=== PATIENT | male | born 1950 | race Caucasian/White ===

== ENCOUNTER 2019-12-03 08:02 | Outpatient (CLI) | payer MEDICARE ==
--- NOTE | 2019-12-03 09:22 | CT ---
EXAM: CT Abdomen Pelvis W WO con PROVIDED CLINICAL HISTORY: Gross hematuria. Renal lithiasis. COMPARISON: None FINDINGS: Linear scarring versus atelectasis is present at the right lung base. Lung bases are otherwise clear Innumerable subcentimeter hypodense lesions are seen throughout each lobe of the liver. There are lar hair hypodense lesions within the right and left hepatic lobes with lesion in the medial segment left hepatic lobe measuring 1.8 cm and larger hypodense lesion in the posterior segment right hepatic lobe measuring 1.3 cm which demonstrate fluid attenuation most compatible with cysts. A 1.6 cm hypodense lesion is seen in a subcapsular location at the medial aspect posterior segment right hepat ic lobe which cannot be characterized as a simple cyst based on this exam. Punctate calcification is seen in the body of the spleen. This could potentially be sequela of prior pancreatitis. No lesion is seen within the pancreas. Spleen and bilateral adrenal glands demonstrate a normal CT appearance. A subcentimeter too small to characterize hypodense lesion is seen in the inferior pole right kidney. No enhancing renal mass is seen on this exam. There are 2 closely adjacent approximately 3 mm calculi seen in the inferior pole left kidney with a faint nonobstructing punctate calculus seen in the superior pole right kidney. No ureteral calculus is seen bilaterally, and there is no evidence of hydronephrosis. Delayed imaging was not obtained for further evaluation of the renal collecting structures and ureters. Urinary bladder is partially distended and has a normal CT appearance. A moderate amount retained fecal material seen throughout the colon. Small bowel are normal in calibe r. Vascular calcification is seen in the abdominal aorta. Scattered subcentimeter lucencies are seen within lumbar vertebral bodies as well as in the iliac bon es bilaterally with a lucency extending through the lateral cortex of the right iliac bone (image 47 and 48 of series 3). Findings may represent osteopenia with prominent nutrient vessel foramen in t he right iliac bone, but early metastatic disease or multiple myeloma cannot be entirely excluded given multiplicity of these areas of lucency. IMPRESSION: 1. Scattered lucencies within the osseous structures, involving the vertebral bodies and iliac bones bilaterally. Findings could be attributable to areas of osteopenia, early multiple myeloma or metastatic disease is a possibility. Correlation with laboratory values is recommended. MRI pelvis is also suggested given the multiple lucencies within the iliac bones. 2. Innumerable hypodense lesions seen throughout the liver. Findings are most likely related to multi ple hepatic cysts. However, given multiplicity of hypodense lesions in the liver, metastatic disease cannot be excluded.. 3. Nonobstructing bilateral renal calculi. No ureteral calculus is seen bilaterally. Delayed imaging was not performed on this exam. This finding was discussed with Dr. Yannick lee on this date. A Dr. Cha requested that a delayed phase imaging be obtained. As result, the patient will be br ought back for additional imaging. 4. Subcentimeter too small to characterize hypodense lesion inferior pole right kidney.
== END 2019-12-03 08:03 | disposition home or self-care (01) ==
LOC: SCSCT 08:02
PROVIDERS: ATTEND Urology
DX: N20.0 Calculus of kidney (principal); R31.0 Gross hematuria; N28.9 Disorder of kidney and ureter, unspecified; K76.9 Liver disease, unspecified; R93.7 Abnormal findings on diagnostic imaging of other parts of musculoskeletal system
CPT/HCPCS: 74178; 82565

== ENCOUNTER 2019-12-10 13:38 | Outpatient (CLI) | payer MEDICARE ==
--- NOTE | 2019-12-10 14:01 | BD ---
BONE DENSITOMETRY: INDICATION: A 69-year-old male for osteoporosis screening. FINDINGS: Lumbar Spine: BMD (g/cm2) L1 0.913 T-Score: -1.5 L2 0.929 T-Score: -1.5 L3 0.982 T-Score: -1.1 L4 1.005 T-Score: -0.8 L1-L4 0.961 T-Score: -1.2 Femoral Neck: 0.627 T-Score: -2.2 Total Femur: 0.890 T-Score: -0.9 Impression: Bone mineral density of the lumbar spine and femoral neck both indicate osteopenia. TEN-YEAR FRACTURE RISK: Major osteoporotic fracture: 8.5%. HIP FRACTURE: 2.7%. POS: AGW
== END 2019-12-10 13:39 | disposition home or self-care (01) ==
LOC: BICMAMMO 13:38
PROVIDERS: ATTEND Internal Medicine Hematology & Oncology
DX: Z13.820 Encounter for screening for osteoporosis (principal); C79.51 Secondary malignant neoplasm of bone; C78.7 Secondary malignant neoplasm of liver and intrahepatic bile duct; C80.1 Malignant (primary) neoplasm, unspecified; M85.89 Other specified disorders of bone density and structure, multiple sites
CPT/HCPCS: 77080

== ENCOUNTER 2020-02-26 13:27 | Outpatient (CLI) | payer MEDICARE ==
--- NOTE | 2020-02-26 13:50 | RAD ---
EXAM: XR Abdomen 1 View/KUB PROVIDED CLINICAL HISTORY: Renal lithiasis COMPARISON: CT abdomen on 12/03/2019 FINDINGS: The left renal shadow is mostly obscured by overlying retained fecal material within the colon. No foss spicious calcification is seen overlying either renal collecting system or along the course of either ureter. Tiny renal calculi seen on prior CT exam are not visualized on this study. A phlebolit h overlies the left hemipelvis. Bowel gas pattern is nonspecific. The osseous structures have a normal appearance. IMPRESSION: 1. No suspicious calculi are seen overlying the renal collecting system or along the course of either ureter. Renal calculi seen on CT exam are not visualized on this study.
[2020-02-26 16:12] LABS: Bacteria/HPF None Seen HPF (None Seen); Bilirubin Negative (Negative); Blood, Urine Negative (Negative); Clarity Clear (Clear); Glucose, Urine (Dipstick) Normal (Negative); Ketone, Urine Negative (Negative); Leukocyte Negative Leu/uL (Negative); Nitrite Negative (Negative); Protein, Urine (Dipstick) Negative (Neg-Trace); RBC/HPF 0-3 HPF (0-3); Specific Gravity, Urine 1.013 (1.002-1.036); Squamous Epithelial None Seen HPF (0-3); Urobilinogen Normal mg/dL (Less than 2); WBC/HPF 0-3 HPF (0-3)
[2020-02-26 16:14] LABS: Urine Culture Reflex No No
== END 2020-02-26 13:28 | disposition home or self-care (01) ==
LOC: SCSRAD 13:27
PROVIDERS: ATTEND Urology
DX: N20.0 Calculus of kidney (principal); R39.15 Urgency of urination; Z87.438 Personal history of other diseases of male genital organs
CPT/HCPCS: 36415; 74018; 81001; G0103

== ENCOUNTER 2020-06-18 14:52 | Outpatient (CLI) | payer MEDICARE | END 2020-06-18 14:53 | disposition home or self-care (01) | LOC: SCSRAD 14:52 | PROVIDERS: ATTEND Student in an Organized Health Care Education/Training Program | DX: M25.551 Pain in right hip (principal); M16.11 Unilateral primary osteoarthritis, right hip ==

== ENCOUNTER 2020-09-21 09:36 | Outpatient (CLI) | payer MEDICARE | END 2020-09-21 09:37 | disposition home or self-care (01) | LOC: SCSRAD 09:36 | PROVIDERS: ATTEND Urology | DX: N20.0 Calculus of kidney (principal) | CPT/HCPCS: 74018; 81001 ==

== ENCOUNTER 2022-06-24 12:29 | Outpatient (CLI) | payer MEDICARE ==
[2022-06-24 13:56] LABS: Bilirubin Neg (Negative); Blood, Urine Negative (Negative); Clarity Clear (Clear); Glucose, Urine (Dipstick) Normal (Negative); Ketone, Urine Negative (Negative); Leukocyte Negative (Negative); Nitrite Negative (Negative); Protein, Urine (Dipstick) Negative (Neg-Trace); Specific Gravity, Urine 1.015 (1.005-1.030); Urobilinogen Normal mg/dL (Less than 2)
[2022-06-24 14:04] LABS: Hemoglobin 14.6 g/dL (13.5-17.5); Mean Corpuscular HGB CONC 33.2 g/dL (32.0-36.0); Mean Corpuscular Hemoglobin 32.2 pg (27.0-33.0); Mean Corpuscular Volume 97.1 fl (81.2-95.1); Mean Platelet Volume 10.6 fl (7.4-10.4); Platelet Count 200 10x3/uL (150-450); RBC Distribution Width 13.1 % (11.5-14.5); Red Blood Cell (RBC) Count 4.53 10x6/uL (4.32-5.72); White Blood Cell (WBC) Count 6.8 10x3/uL (3.5-10.5)
[2022-06-24 14:09] LABS: INR-International Normal Ratio 1.1; PTT 23.9 sec (22.0-33.0); Prothrombin Time 11.7 sec (9.5-12.1)
[2022-06-24 14:13] LABS: Bacteria/HPF None Seen HPF (None Seen); RBC/HPF 0-3 HPF (0-3); Squamous Epithelial 0-3 HPF (0-3); WBC/HPF 0-3 HPF (0-3)
[2022-06-24 14:22] LABS: Anion Gap 12 mmol/L (10-20); BUN (Urea Nitrogen) 13 mg/dL (8.4-25.7); Calc. Creatinine Clearance 0 mL/min (70-130); Calcium 9.6 mg/dL (7.8-10.44); Carbon Dioxide 29 mmol/L (23-31); Chloride 104 mmol/L (98-107); Estimated GFR 80; Glucose 110 mg/dL (83-110); Potassium 4.4 mmol/L (3.5-5.1); Sodium 141 mmol/L (136-145)
== END 2022-06-24 12:30 | disposition home or self-care (01) ==
LOC: LABBT 12:29
PROVIDERS: ATTEND Urology
DX: Z01.818 Encounter for other preprocedural examination (principal); Z12.5 Encounter for screening for malignant neoplasm of prostate; R39.15 Urgency of urination; N20.0 Calculus of kidney; N40.1 Benign prostatic hyperplasia with lower urinary tract symptoms; I48.91 Unspecified atrial fibrillation; N50.0 Atrophy of testis; K76.89 Other specified diseases of liver; R93.7 Abnormal findings on diagnostic imaging of other parts of musculoskeletal system; F41.9 Anxiety disorder, unspecified; Z87.448 Personal history of other diseases of urinary system; Z90.79 Acquired absence of other genital organ(s); Z87.438 Personal history of other diseases of male genital organs
CPT/HCPCS: 80048; 81001; 85027; 85610; 85730; 87086; 93005; 93010

== ENCOUNTER 2022-06-29 06:38 | Day surgery (SDC) | payer MEDICARE ==
[2022-06-28 11:12] VITALS: BMI 23.2
[2022-06-29] MEDS ORDERED: Levofloxacin 500 mg/D5W 100 ml Premix Bag ONE (07:52)
[2022-06-29] MEDS ORDERED: Acetaminophen 500 MG TAB ONE (09:05)
[2022-06-29] MEDS ORDERED: Midazolam HCl 2 mg/2 ml Vial ONE (09:10)
[2022-06-29] MEDS ORDERED: Fentanyl 100 MCG/2 ML VIAL ONE ×2 (09:10→10:45)
[2022-06-29] MEDS ORDERED: Propofol 500 MG/50 ML VIAL ONE (09:11)
[2022-06-29] MEDS ORDERED: Ketorolac Tromethamine 30 MG/ML VIAL ONE (09:21)
[2022-06-29] MEDS ORDERED: PROPOFOL 200 MG/20 ML VIAL ONE (09:21)
== END 2022-06-29 12:18 | disposition home or self-care (01) ==
LOC: SDC 06:38
PROVIDERS: ATTEND Urology
PROC: 0T7D8DZ Dilation of Urethra with Intraluminal Device, Via Natural or Artificial Opening Endoscopic (ICD-10-PCS; principal; 2022-06-29)
DX: N40.1 Benign prostatic hyperplasia with lower urinary tract symptoms (principal); N13.8 Other obstructive and reflux uropathy; I48.0 Paroxysmal atrial fibrillation; N50.0 Atrophy of testis; Z79.899 Other long term (current) drug therapy
CPT/HCPCS: J1885; J1956; J2250; J2704; J3010

== ENCOUNTER → 2023-09-18 | Day surgery (SDC) | payer MEDICARE ==
[2023-09-15 11:12] VITALS: BMI 22.9
[2023-09-15 12:09] LABS: Hematocrit 41.8 % (38.8-50.0); Hemoglobin 14.2 g/dL (13.5-17.5); INR-International Normal Ratio 1.2; Mean Corpuscular Hemoglobin 33.8 pg (27.0-33.0); Mean Corpuscular Volume 99.5 fl (81.2-95.1); Mean Platelet Volume 11.1 fl (7.4-10.4); PTT 25.9 sec (22.0-33.0); Platelet Count 146 10x3/uL (150-450); Prothrombin Time 12.7 sec (9.5-12.1); RBC Distribution Width 12.9 % (11.5-14.5)
[2023-09-15 12:14] LABS: Anion Gap 11 mmol/L (10-20); BUN (Urea Nitrogen) 18 mg/dL (8.4-25.7); Calc. Creatinine Clearance 66 mL/min (70-130); Calcium 9.1 mg/dL (7.8-10.44); Carbon Dioxide 27 mmol/L (23-31); Chloride 105 mmol/L (98-107); Estimated GFR 78; Glucose 105 mg/dL (83-110); Potassium 4.4 mmol/L (3.5-5.1); Sodium 139 mmol/L (136-145)
[~2023-09-18] MED LIST: Heparin 10,000 UNITS/ 10 ML VIAL ONE; Heparin 25,000 units/D5W 500 ML ONE; Isoproterenol 0.2 MG/1 ML AMP ONE; Protamine Sulfate 50 MG/5 ML VIAL ONE; SUGAMMADEX SODIUM 200 MG/2 ML VIAL ONE; fentaNYL 50 mcg/mL 1 mL Vial ONE
== END | disposition home or self-care (01) ==
LOC: SDC 06:04
PROVIDERS: ATTEND Internal Medicine Cardiovascular Disease
PROC: 4A023FZ Measurement of Cardiac Rhythm, Percutaneous Approach (ICD-10-PCS; principal; 2023-09-18)
PROC: 02583ZZ Destruction of Conduction Mechanism, Percutaneous Approach (ICD-10-PCS; 2023-09-18)
DX: I48.0 Paroxysmal atrial fibrillation (principal); F41.9 Anxiety disorder, unspecified; I34.1 Nonrheumatic mitral (valve) prolapse; Z79.899 Other long term (current) drug therapy; Z79.01 Long term (current) use of anticoagulants
CPT/HCPCS: 80048; 85027; 85347 ×2; 85610; 85730; 93005; 93622; 93623; 93656; 93657; C1732 ×3; C1760; C1894; J3010; C1759; J1644; J2720

== ENCOUNTER 2024-03-21 09:12 | Outpatient (CLI) | payer MEDICARE | END 2024-03-21 09:13 | disposition home or self-care (01) | LOC: BICRAD 09:12 | PROVIDERS: ATTEND Urology | DX: N28.1 Cyst of kidney, acquired (principal); N20.0 Calculus of kidney | CPT/HCPCS: 74018 ==